=== PATIENT | female | born 1995 | race Hispanic/Latino ===

== ENCOUNTER 2019-10-07 18:49 | Emergency (ER) | payer OTHER ==
[~2019-10-07] VITALS: Ht 165.1 cm; Wt 87.7 kg
[2019-10-07 18:50] VITALS: BP 119/68
[2019-10-07] MEDS ORDERED: NS 1,000 ML IV ONE (19:30)
[2019-10-07] MEDS ORDERED: ACETAMINOPHEN 325 MG TAB PO ONE (19:30)
[2019-10-07 20:28] LABS: BASO % 0.1 % (0.0-1.0); EOS % 0.1 % (0.0-3.0); HEMATOCRIT 37.8 % (36.0-47.0); HEMOGLOBIN 12.7 g/dl (12.0-15.5); LYMPH # 0.9 10^3/uL (1.5-5.0); LYMPH % 9.6 % (24.0-44.0); MEAN CORPUSCULAR HEMOGLOBIN 29.4 pg (27.0-33.0); MEAN CORPUSCULAR HGB CONC 33.6 g/dl (32.0-36.5); MEAN CORPUSCULAR VOLUME 87.5 fl (80.0-96.0); MONO # 0.4 10^3/uL (0.0-0.8); MONO % 3.8 % (0.0-5.0); NEUTROPHILS # 7.8 10^3/uL (1.5-8.5); PLATELET COUNT, AUTOMATED 197 10^3/uL (150-450); RED BLOOD COUNT 4.32 10^6/uL (4.00-5.40); WHITE BLOOD COUNT 9.1 10^3/uL (4.0-10.0)
[2019-10-07 20:46] LABS: ALBUMIN 3.3 GM/DL (3.2-5.2); BILIRUBIN,DIRECT 0.2 MG/DL (0.0-0.2); BILIRUBIN,TOTAL 0.4 MG/DL (0.2-1.0)
[2019-10-07] MEDS ORDERED: AMOX500C PO (22:17)
== END 2019-10-07 22:28 | disposition home or self-care (01) ==
LOC: M ED 18:49
DX: O23.41 Unspecified infection of urinary tract in pregnancy, first trimester (principal); O26.891 Other specified pregnancy related conditions, first trimester; R51 Headache; Z3A.12 12 weeks gestation of pregnancy

== ENCOUNTER 2020-04-08 08:02 | Inpatient (IN) | payer OTHER ==
[2020-04-08] VITALS (9 sets, daily range): BP systolic 125–146; BP diastolic 69–97
[~2020-04-08] VITALS: Ht 165.1 cm; Wt 106.1 kg
[~2020-04-08 08:02] MED LIST: AMOX500C PO
[2020-04-08] MEDS ORDERED: PRENTAB9 PO (08:33)
[2020-04-08] MEDS ORDERED: OXYTOCIN 30 UNITS IN 0.9% NaCl 500ML IV BAG (J2590) As Ordered ONE (09:05)
[2020-04-08] MEDS ORDERED: ceFAZolin 2 GM/D5W 50 ML IV BAG (J0690 PER 500MG) As Ordered ONE (09:47)
--- NOTE | 2020-04-08 09:50 | DNPDOC ---
[facility] Delivery Note Delivery Note DATE OF DELIVERY: 04/08/20 TIME OF DELIVERY: 09 Spontaneous vaginal delivery. [employer]ING R[employer] MECHANIC: Dr. Jose Singh DO FACOG ANESTHESIA: none LACERATION: 1st degree ESTIMATED BLOOD LOSS: 200 mL. FINDINGS: 7 pound 13 ounce Male infant, Score 8 and 9. DELIVERY SUMMARY: The active phase and second stage of labor progressed in normal fashion.. The head delivered in the MAURICE position, and restituted LOT. No nuchal cord was noted. The anterior shoulder delivered with gentle downward guidance and the remainder of the body delivered with ease. The baby was placed on the patient's chest. Delayed cord clamping occurred for approximately 1 minute. The cord was then doubly clamped and cut. IV Pitocin was bolused to actively manage the third stage of labor. Delayed delivery of the placenta prompted a manual extraction (>10 minutes after delivery). The placenta delivered intact without any difficulty. The uterine fundus was noted to be firm and 2 cm below the umbilicus. The cervix, vagina, vulva and perineum were inspected. A first-degree laceration was noted and immediately repaired with 3- 0 Vicryl in typical fashion under local anesthesia. Excellent hemostasis was noted. Sponge, needle and instrument counts were correct per protocol. DO VIPUL Abreu JONATHAN R. DO Apr 08, 2020 09:50
[2020-04-08] MEDS ORDERED: OXYTOCIN DRIP 30 UNITS in IV 1 EA IV SCH (10:03)
[2020-04-08] MEDS ORDERED: ACETAMINOPHEN 500 MG TAB PO PRN (10:15)
[2020-04-08] MEDS ORDERED: ACETAMINOPHEN TAB 650MG DOSE (2X325MG) PO PRN (10:15)
[2020-04-08] MEDS ORDERED: IBUPROFEN 600MG TAB PO PRN (10:15)
[2020-04-08] MEDS ORDERED: BENZOCAINE 20% HEMORRHOIDAL OINTMENT 28GM TUBE TOP PRN (10:15)
[2020-04-08] MEDS ORDERED: ceFAZolin SOD 2 GM in IV 1 EA IV ONE (10:15)
[2020-04-08] MEDS ORDERED: DOCUSATE SODIUM 100MG CAPSULE PO PRN (10:15)
--- NOTE | 2020-04-08 10:23 | HPEPDOC ---
Obstetrical History & Physical General Date of Admission Apr 08, 2020 at 08:50 History of Present Illness 24yo at 38+5 by LMP c/w 1T US presented to D in active labor and preci pitously delivered with Dr. Salvador. She denied illness today; denied n/v/d, cp, sob, blevins, visual changes, f/c, vb, urinary sx. She has had some mild range BPs during lab that have persisted after delivery and has a history of GHTN. She denied si/sx of pre-e. APC 1. history of GHTN, mild range BPs on admission 2. FOB is not 3. excessive weight gain in 44# Rh pos. GBS neg. 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 BREAST: . ABDOMEN: Gravid and non-tender to touch. HEART RATE: non-tachycardic LUNGS: no increased wob EXTREMITIES: No edema. No clonus. Laboratory Data 24H LABS Laboratory Tests 2 04/08/20 09:33: Serology Scanned Report Hepatitis B Testing Urine Culture: No Growth Pertinent Laboratoy Data Blood Type: O+ RBC Antibody Screen: Negative HIV: Negative Hepatitis B: Negative Rapid Plasma Reagin: Nonreactive Rubella: Immune Varicella: Immune Chlamydia/Gonorrhea: Negative Group B Streptococcus: Negative Quad Screen Test: Negative Cystic Fibrosis: Negative Anatomy Ultrasound Normal Anatomy: Yes Estimated Weight (grams): 122 Assessment/Plan Assessment 24yo at 38+5 by LMP c/w 1T US presented to L+D in active labor and precipitously delivered with Dr. Salvador, delivery was complicated by manual placental extraction for which she received 2g of ancef. She has had some mild range BPs during lab that have persisted after delivery and has a history of GHT N. She denied si/sx of pre-e. APC 1. history of GHTN, mild range BPs on admission 2. FOB is not 3. excessive weight gain in 44# Rh pos. GBS neg. Plan - admit to L+D, routine PPC - admit and tox labs ordered - - BC: ____ TBD - regular diet, activity as tolerated, VS per protocol JEREMY ACOSTA DO Apr 08, 2020 10:23
[2020-04-08] MEDS: IBUPROFEN 800 MG TAB PO PRN ×2 (10:24→20:26)
[2020-04-08 10:49] LABS: HEMATOCRIT 40.2 % (36.0-47.0); HEMOGLOBIN 12.8 g/dl (12.0-15.5); MEAN CORPUSCULAR HGB CONC 31.8 g/dl (32.0-36.5); MEAN CORPUSCULAR VOLUME 81.7 fl (80.0-96.0); PLATELET COUNT, AUTOMATED 185 10^3/uL (150-450); RED BLOOD COUNT 4.92 10^6/uL (4.00-5.40); WHITE BLOOD COUNT 13.9 10^3/uL (4.0-10.0)
[2020-04-08 11:04] LABS: ALT/SGPT 14 U/L (12-78); CREATININE FOR GFR 0.59 MG/DL (0.55-1.30); GLOMERULAR FILTRATION RATE > 60.0 (>60); LDH LACTATE DEHYDROGENASE 164 U/L (84-246); URIC ACID 3.8 MG/DL (2.6-6.0)
[2020-04-08] MEDS: PRENATAL VITAMINS CHEWABLE TABLET PO SCH (12:00)
[2020-04-08] MEDS ORDERED: LIDOCAINE 1% MDV 20ML VIAL INFIL ONE (16:00)
[2020-04-09 05:52] VITALS: BP 110/55
--- NOTE | 2020-04-09 07:04 | IPNPDOC ---
Progress Note Date of Service: Apr 09, 2020 Day#: 1 Progress Note SUBJECT: 24yo at 38+5 by LMP c/w 1T US presented to [facility] in active labor and precipitously delivered with Dr. Salvador. She has been ambulating, voiding spontaneously without issue and tolerating regular diet. Breast feeding without issue. Reports lochia is [like a normal period]. Patient is ambulating well. [Reports some cramping with . Denies any pain. Voiding and passing flatus without difficulty]. She denied illness today; denied n/v/d, cp, sob, blevins, visual changes, f/c, vb, urinary sx. She has had some mild range BPs during lab that have not persisted after delivery and has a history of GHTN. She denied si/sx of pre-e. APC 1. history of GHTN, mild range BPs on admission 2. FOB is not 3. excessive weight gain in 44# 4. mild range BPs within approx 1-2h at time of delivery that did not persist, normal CBC/CMP no si/sx pre-e OBJECTIVE: VITAL SIGNS: Within normal limits, afebrile. Alert and oriented times three. no increased wob non-tachy Abdomen: Fundus firm at U-2. Soft, NTTP. [Minimal] lochia. per pt ASSESSMENT: 24yo at 38+5 by LMP c/w 1T US presented to [facility] in active labor and precipitously delivered with Dr. Salvador. Vitals within normal limits, afebrile, hemodynamically stable with no evidence of infection. PLAN: 1. Discharge to home today or tomorrow depending on baby's discharge plan 2. Tylenol and Motrin for pain. 3. Encourage breast feeding and ambulation. 4. Patient is undecided for contraception, she desires to breastfeed, discussed contraception methods with her and educated on risk of close interval 5. Routine PP visit in 6 weeks in clinic. 6. Discussed return precautions at length. VS, I&O, 24H, Fishbone Vital Signs/I&O Vital Signs Date Time Temp Pulse Resp B/P (MAP) Pulse Ox O2 Delivery O2 Flow Rate FiO2 04/09/20 05:52 97.4 70 16 110/55 (73) 99 Room Air I&O- Last 24 Hours up to 6 AM 04/09/20 06:00 Intake Total 550 ml Output Total 500 ml Balance 50 ml Laboratory Data 24H LABS Laboratory Tests 2 04/08/20 09:33: Serology Scanned Report Hepatitis B Testing 04/08/20 10:23: Nucleated Red Blood Cells % (auto) 0.0, Glomerular Filtration Rate > 60.0, Uric Acid 3.8, Total Bilirubin 1.0, Aspartate Amino Transf (AST/SGOT) 9, Alanine Aminotransferase (ALT/SGPT) 14, Lactate Dehydrogenase 164, Syphilis Serology NONREACTIVE CBC/BMP Laboratory Tests 04/08/20 10:23 JEREMY ACOSTA DO Apr 09, 2020 07:04
[2020-04-09] MEDS: PRENATAL VITAMINS CHEWABLE TABLET PO SCH (08:24)
[2020-04-09] MEDS: IBUPROFEN 800 MG TAB PO PRN ×2 (08:33→20:27)
[2020-04-09 18:00] VITALS: BP 131/76
[2020-04-10 05:42] VITALS: BP 120/71
--- NOTE | 2020-04-10 07:41 | IPNPDOC ---
Progress Note Date of Service: Apr 10, 2020 Day#: 2 Progress Note SUBJECT: 24yo PPD2 S/P Precipious delivery at 38+5. She has been ambul ating, voiding spontaneously without issue and tolerating regular diet. Breast feeding without issue. Reports lochia is minimal . Patient is ambulating well. BP has been normotensive overnight. APC 1. history of GHTN, mild range BPs on admission 2. mild range BPs within approx 1-2h at time of delivery that did not persist, normal CBC/CMP no si/sx pre-e OBJECTIVE: VITAL SIGNS: Within normal limits, afebrile. Alert and oriented times three. no increased wob non-tachy Abdomen: Fundus firm at U-2. Soft Minimal lochia. per pt ASSESSMENT: 24yo PPD2 S/P Precipious delivery at 38+5. Vitals within normal limits, afebrile, hemodynamically stable with no evidence of infection. PLAN: 1. Discharge to home today 2. Tylenol and Motrin for pain. 3. Encourage breast feeding and ambulation. 4. Patient is undecided for contraception, she desires to breastfeed, discussed contraception methods with her and educated on risk of close interval 5. Routine PP visit in 6 weeks in clinic. 6. Discussed return precautions at length. VS, I&O, 24H, Fishbone Vital Signs/I&O Vital Signs Date Time Temp Pulse Resp B/P (MAP) Pulse Ox O2 Delivery O2 Flow Rate FiO2 04/10/20 05:42 97.7 73 18 120/71 (87) 04/09/20 18:00 99 Room Air WALESKA SHERWOOD MD Apr 10, 2020 07:41
[2020-04-10] MEDS: IBUPROFEN 800 MG TAB PO PRN (08:03)
[2020-04-10] MEDS: PRENATAL VITAMINS CHEWABLE TABLET PO SCH (08:03)
[2020-04-10] MEDS ORDERED: IBUP80TA PO (08:14)
[2020-04-10] MEDS ORDERED: DOK1CAP7 PO (08:14)
[2020-04-10] MEDS ORDERED: ACET-683 PO (08:14)
== END 2020-04-10 14:25 | disposition home or self-care (01) | DRG 764 ==
LOC: M LDO 08:02 → M LDI 08:50 → M OBS 12:08
PROVIDERS: ADMIT Obstetrics & Gynecology; ATTEND Obstetrics & Gynecology
PROC: 10D17ZZ Extraction of Products of Conception, Retained, Via Natural or Artificial Opening (ICD-10-PCS; principal; 2020-04-08)
PROC: 10E0XZZ Delivery of Products of Conception, External Approach (ICD-10-PCS; 2020-04-08)
PROC: 0HQ9XZZ Repair Perineum Skin, External Approach (ICD-10-PCS; 2020-04-08)
DX: O62.3 Precipitate labor (principal); Z37.0 Single live birth; Z3A.38 38 weeks gestation of pregnancy; O70.0 First degree perineal laceration during delivery

== ENCOUNTER 2022-01-24 03:30 | Inpatient (IN) | payer OTHER ==
[~2022-01-24] VITALS: Ht 165.1 cm; Wt 104.6 kg
[~2022-01-24 03:30] MED LIST changes: +ACET-683 PO; +DOK1CAP4 PO; +IBUP80TA PO; +PRENTAB9 PO
[2022-01-24] MEDS ORDERED: OXYTOCIN 30 UNITS IN 0.9% NaCl 500ML IV BAG (J2590) As Ordered ONE (03:47)
[2022-01-24] MEDS ORDERED: PENICILLIN G POTASSIUM 5 MU IV 5 MU in D5W MINI-BAG PLUS 100 ML IV STA (03:52)
[2022-01-24] MEDS ORDERED: METHYLERGONOVINE MALEATE 0.2 MG/ML VIAL (J2210) IM PRN (03:55)
[2022-01-24] MEDS ORDERED: TRANEXAMIC ACID INJection 1,000 MG in NS 100 ML IV PRN (03:55)
[2022-01-24] MEDS ORDERED: LIDOCAINE 1% MDV 20ML VIAL INFIL PRN (03:55)
[2022-01-24] MEDS ORDERED: OXYTOCIN DRIP 30 UNITS in IV 1 EA IV PRN ×4 (03:55)
[2022-01-24 05:15] LABS: HEMATOCRIT 39.3 % (36.0-47.0); HEMOGLOBIN 12.8 g/dl (12.0-15.5); MEAN CORPUSCULAR HEMOGLOBIN 26.8 pg (27.0-33.0); MEAN CORPUSCULAR HGB CONC 32.6 g/dl (32.0-36.5); MEAN CORPUSCULAR VOLUME 82.2 fl (80.0-96.0); PLATELET COUNT, AUTOMATED 163 10^3/uL (150-450); RED BLOOD COUNT 4.78 10^6/uL (4.00-5.40); WHITE BLOOD COUNT 14.1 10^3/uL (4.0-10.0)
[2022-01-24] MEDS ORDERED: DOCUSATE SODIUM 100MG CAPSULE PO PRN (05:20)
[2022-01-24] MEDS ORDERED: RHOGAM 300 MCG (1500 IU) INJ (J2790) IM SCH (05:20)
[2022-01-24] MEDS ORDERED: DIBUCAINE 1% OINTMENT 30GM TOP PRN (05:20)
[2022-01-24] MEDS ORDERED: IBUPROFEN 600MG TAB PO PRN (05:20)
[2022-01-24] MEDS ORDERED: METHYLERGONOVINE MALEATE 0.2 MG TAB PO PRN (05:20)
[2022-01-24] MEDS ORDERED: ACETAMINOPHEN TAB 650MG DOSE (2X325MG) PO PRN (05:20)
[2022-01-24] MEDS: IBUPROFEN 800 MG TAB PO PRN ×3 (05:25→15:47)
[2022-01-24] MEDS: ACETAMINOPHEN 500 MG TAB PO PRN ×2 (05:26→11:07)
[2022-01-24 07:09] VITALS: BP 116/56
[2022-01-24] MEDS: PRENATAL VITAMINS CHEWABLE TABLET PO SCH (11:07)
[2022-01-24 18:00] VITALS: BP 123/68
[2022-01-25 06:00] VITALS: BP 110/64
[2022-01-25 06:47] LABS: HEMATOCRIT 34.7 % (36.0-47.0); HEMOGLOBIN 11.3 g/dl (12.0-15.5); MEAN CORPUSCULAR HEMOGLOBIN 27.1 pg (27.0-33.0); MEAN CORPUSCULAR HGB CONC 32.6 g/dl (32.0-36.5); MEAN CORPUSCULAR VOLUME 83.2 fl (80.0-96.0); PLATELET COUNT, AUTOMATED 176 10^3/uL (150-450); RED BLOOD COUNT 4.17 10^6/uL (4.00-5.40); WHITE BLOOD COUNT 13.1 10^3/uL (4.0-10.0)
[2022-01-25] MEDS: PRENATAL VITAMINS CHEWABLE TABLET PO SCH (08:53)
[2022-01-25] MEDS: IBUPROFEN 800 MG TAB PO PRN (16:09)
[2022-01-25] MEDS: ACETAMINOPHEN 500 MG TAB PO PRN (17:58)
[2022-01-25 18:00] VITALS: BP 109/55
[2022-01-26] MEDS: ACETAMINOPHEN 500 MG TAB PO PRN (05:59)
[2022-01-26 06:00] VITALS: BP 118/63
[2022-01-26] MEDS: PRENATAL VITAMINS CHEWABLE TABLET PO SCH (08:24)
[2022-01-26] MEDS ORDERED: MEASLES,MUMPS,RUBELLA VACCINE INJ (MMR-II) (90707) SC.IMMUN ONE (09:00)
== END 2022-01-26 13:35 | disposition home or self-care (01) | DRG 807 ==
LOC: M LDO 03:30 → M LDI 03:41 → M OBS 07:08
PROVIDERS: ADMIT Obstetrics & Gynecology; ATTEND Obstetrics & Gynecology
PROC: 10E0XZZ Delivery of Products of Conception, External Approach (ICD-10-PCS; principal; 2022-01-24)
DX: O99.824 Streptococcus B carrier state complicating childbirth (principal); Z37.0 Single live birth; Z3A.39 39 weeks gestation of pregnancy